=== PATIENT | male | born 1950 | race Two or more races ===

== ENCOUNTER 2017-08-15 08:12 | Outpatient (CLI) | payer OTHER | END 2017-08-15 09:49 | disposition home or self-care (01) | LOC: MRI 08:12 | DX: R55 Syncope and collapse (principal); I11.9 Hypertensive heart disease without heart failure; E11.8 Type 2 diabetes mellitus with unspecified complications; E78.2 Mixed hyperlipidemia; I67.2 Cerebral atherosclerosis | CPT/HCPCS: 70552; A9579 ==

== ENCOUNTER 2017-12-24 09:24 | Outpatient (CLI) | payer OTHER | END 2017-12-24 09:39 | disposition home or self-care (01) | LOC: MRI 09:24 | DX: G45.8 Other transient cerebral ischemic attacks and related syndromes (principal) | CPT/HCPCS: 70544 ==

== ENCOUNTER → 2018-08-27 | Outpatient (CLI) | payer OTHER | END | disposition home or self-care (01) | LOC: NUCLEAR 08:02 | DX: I73.89 Other specified peripheral vascular diseases (principal); I87.2 Venous insufficiency (chronic) (peripheral) ==

== ENCOUNTER 2018-09-01 10:14 | Outpatient (CLI) | payer OTHER | END 2018-09-01 10:29 | disposition home or self-care (01) | LOC: SONOGRAMA 10:14 → MAMO-SONO 10:40 | DX: K82.8 Other specified diseases of gallbladder (principal) ==

== ENCOUNTER 2018-09-08 08:14 | Outpatient (CLI) | payer OTHER | END 2018-09-08 08:18 | disposition home or self-care (01) | LOC: NUCLEAR 08:14 | DX: I73.89 Other specified peripheral vascular diseases (principal); I73.9 Peripheral vascular disease, unspecified ==

== ENCOUNTER 2020-07-20 08:26 | Outpatient (CLI) | payer OTHER | END 2020-07-20 09:50 | disposition home or self-care (01) | LOC: MRI 08:26 | PROVIDERS: ATTEND Internal Medicine Gastroenterology | DX: R10.84 Generalized abdominal pain (principal); R74.8 Abnormal levels of other serum enzymes; E80.6 Other disorders of bilirubin metabolism; K86.2 Cyst of pancreas; R93.5 Abnormal findings on diagnostic imaging of other abdominal regions, including retroperitoneum | CPT/HCPCS: 74181 ==

== ENCOUNTER 2022-08-22 09:18 | Outpatient (CLI) | payer OTHER | END 2022-08-22 09:27 | disposition home or self-care (01) | LOC: SONOGRAMA 09:18 | PROVIDERS: ATTEND Internal Medicine Gastroenterology | DX: R10.9 Unspecified abdominal pain (principal) ==

== ENCOUNTER 2022-08-24 07:27 | Outpatient (CLI) | payer OTHER | END 2022-08-24 07:38 | disposition home or self-care (01) | LOC: TOM 07:27 | PROVIDERS: ATTEND Internal Medicine Gastroenterology | DX: R10.9 Unspecified abdominal pain (principal) | CPT/HCPCS: 74160; Q9965 ==

== ENCOUNTER 2022-09-19 07:12 | Outpatient (CLI) | payer OTHER | END 2022-09-19 07:13 | disposition home or self-care (01) | LOC: NUCLEAR 07:12 | PROVIDERS: ATTEND Internal Medicine Gastroenterology | DX: K31.84 Gastroparesis (principal) | CPT/HCPCS: 78264; A9541 ==

== ENCOUNTER 2024-11-16 07:33 | Outpatient (CLI) | payer OTHER | END 2024-11-16 07:34 | disposition home or self-care (01) | LOC: NUCLEAR 07:33 | PROVIDERS: ATTEND General Practice | DX: I25.119 Atherosclerotic heart disease of native coronary artery with unspecified angina pectoris (principal) | CPT/HCPCS: 78452; 93017; A9500 ==